=== PATIENT | female | born 1965 | race Caucasian/White ===

== ENCOUNTER 2025-03-21 08:54 | Outpatient (CLI) | payer OTHER, SELFPAY ==
--- OUTSIDE RECORDS SUMMARY | 2024-01-21 02:15 | XMS_ITS ---
Author Organization [facility] Address [address] [place] [address] Care Team Providers Care Armored Service Technician Name Role Phone Mati Guajardo MD Primary Care Provider [phone] RAJAN ELIAS, ABDI Maurer [phone] Encounters Encounter Location Date [facility] [address] [place] [address] 01/21/2024 ABDI HEBERT Plan Of Treatment No Information Progress Notes * BRUNO BEVERLYDOB:1965 (60 yo F)Acc No.[id number]:01/21/2024 Patient: BRUNO ANNA Provider: Jen Hebert MD :1965 A ge:58 Y S ex:Female Date:01/21/2024 Address:[address] [place] [address] [id number] Pcp:Mati Guajardo MD Subjective: * Chief Complaints: * * Medical History: Objective: * Vitals: Assessment: Plan: * Treatment: * Billing Information: * Visit Code: * Procedure Codes: * Electronic signature of TANK HEBERT MD, M.D. on 03/21/2025 at 10:30 AM EST Sign off status: Pending * Provider: Jen Hebert MD Date: 0 01/21/2024 Generated for Tamara gill/[place]/eTransmitting on: 05/21/2024 10:30 AM EST
--- OUTSIDE RECORDS SUMMARY | 2024-01-28 09:00 | XMS_ITS ---
Author Organization [facility] Address [address] [place] [address] Care Team Providers Care Hardware Assembler Name Role Phone Mati Guajardo MD Primary Care Provider REASON FOR VISIT AWV Encounters Encounter Location Date [facility] [address] [facility] [place] [address] 01/28/2024 Mati Guajardo Plan Of Treatment No Information Progress Notes * BRUNO BEVERLYDOB:1965 (60 yo F)Acc No.[id number]:01/28/2024 Progress Notes Patient: BRUNO ANNA Provider: Derrick Guajardo MD :1965 A ge:58 Y S ex:Female Date:01/28/2024 [address] [place] Subjective: * Chief Complaints: * 1 . AWV. * Medical History: Objective: * Vitals: Assessment: Plan: * Treatment: * Billing Information: * Visit Code: * Procedure Codes: * Electronic signature of Anton Guajardo MD, MD on 03/21/2025 at 10:30 AM EST Sign off status: Pending * Provider: Derrick Guajardo MD Date: 0 01/28/2024 Generated for Printi ng/Faxing/eTransmitting on: 1 05/21/2024 10:30 AM EST
--- OUTSIDE RECORDS SUMMARY | 2024-03-03 03:15 | XMS_ITS ---
Author Organization [facility] Address [address] [place] [address] Care Team Providers Care File Conversion Operator Name Role Phone Mati Guajardo MD Primary Care Provider Encounters Encounter Location Date Provider Diagnosis [facility] [address] [place] [address] 03/03/2024 Mati Guajardo Plan Of Treatment No Information Progress Notes * BRUNO BEVERLYDOB:1965 (60 yo F)Acc No.[id number]:03/03/2024 Patient: BRUNO ANNA Provider: Derrick Guajardo MD :1965 A ge:59 Y S ex:Female Date:03/03/2024 Address[address] [place], [place] [address] [address] [id number] Subjective: * Chief Complaints: * * Medical History: Objective: * Vitals: Assessment: Plan: * Treatment: * Billing Information: * Visit Code: * Procedure Codes: * Electronic signature of Anton Guajardo MD, MD on 03/21/2025 at 10:30 AM EST Sign off status: Pending * Provider: Derrick Guajardo MD Date: Generated for Printi ng/Faxing/eTransmitting on: 05/21/2024 10:30 AM EST
--- OUTSIDE RECORDS SUMMARY | 2024-03-20 07:30 | XMS_ITS ---
Author Organization [facility] Address [address] [place] [address] Care Team Providers Care Blister Rust Eradicator Name Role Phone Mati Guajardo MD Primary Care Provider [phone] Encounters Encounter Location Date Provider Diagnosis [facility] [address] [place] [address] 03/20/2024 Mati Guajardo Plan Of Treatment No Information Progress Notes * BRUNO BEVERLYDOB:1965 (60 yo F)Acc No.[id number]:03/20/2024 Progress Notes Patient: BRUNO ANNA Provider: Derrick Guajardo MD :1965 A ge:59 Y S ex:Female Date:03/20/2024 Address:[address] [place], [place] [address] [address] Subjective: * Chief Complaints: * * Medical History: Objective: * Vitals: Assessment: Plan: * Treatment: * Billing Information: * Visit Code: * Procedure Codes: * Electronic signature of Anton Guajardo MD, MD on 03/21/2025 at 10:30 AM EST Sign off status: Pending * Provider: Derrick Guajardo MD Date: 05/20/2023 Generated for Printi ng/Faxing/eTransmitting on: 05/21/2024 10:30 AM EST
--- NOTE | ~2025-03-21 | MR_ITS ---
EXAMINATION: MR MRCP wo/w con/w 3D wo ind DATE: 03/21/2025 11:31 INDICATION: Pancreatic disease Contrast: 14 mL MultiHance TECHNIQUE: Magnetic resonance imaging (MRI) of the abdomen was performed with intravenous contrast. Sequences included coronal T2-weighted FS FSE, coronal T2- weighted FSE, axial T1-weighted LAVA, coronal FS FIESTA, axial dual-echo T1- weighted SPGR, coronal lava-FLEX, sagittal T2-weighted FSE, axial T2-weighted FSE, and axial DWI. Thick-slab T2-weighted FSE images were obtained for magnetic resonance cholangiopancreatography (MRCP). Maximum intensity projection 3-D reconstructions of the volumetric data were created by the technologist. Postcontrast sequences included coronal LAVA-flex and time course of axial T1- weighted LAVA. COMPARISON: None. FINDINGS: 2.5 x 1.5 x 1.3 cm irregularly marginated nonenhancing fluid intensity cystic focus is present along the anterior margin of the pancreatic head and body region seen on image 26 series 4, image 7 series 3, and on the MRCP image. The remainder the pancreas appears normal. The pancreatic duct appears normal. 1.1 cm septated slightly complex cyst right lobe of the liver image 19 series 4. Gallbladder appears normal and no biliary ductal dilatation present. No choledocholithiasis seen. Common bile duct measures maximum 5 mm in diameter. Pancreatic duct appears normal. Adrenal glands kidneys and stomach appear normal. The aorta normal in size. Bones appear intact. Partially visualized bilateral breast implants with visualized portions appear intact. IMPRESSION: 1. 2.5 x 1.5 x 1.3 cm cystic lesion along the anterior margin of the pancreatic head/uncinate region with no suspicious enhancing features favoring benignity. IPMN or intraductal papillary mucinous neoplasm could have a similar appearance. Follow-up surveillance MRI in 6 months or sooner if clinically appropriate recommended. 2. Normal MRCP. Reviewed, dictated and finalized at location A. [facility] IMPRESSION: 1. 2.5 x 1.5 x 1.3 cm cystic lesion along the anterior margin of the pancreatic head/uncinate region with no suspicious enhancing features favoring benignity. IPMN or intraductal papillary mucinous neoplasm could have a similar appearanc e. Follow-up surveillance MRI in 6 months or sooner if clinically appropriate r ecommended. 2. Normal MRCP.
--- OUTSIDE RECORDS SUMMARY | 2025-03-21 09:30 | XMS_ITS ---
Author Organization Unknown ENCOUNTERS Encounter Performer Location Date Diagnosis Diagnosis Status Outpatient Rosalie Brooke [place] [address] [facility] [place] [id number] *Note: Encounters from your own facility or health system may be excluded. Allergies, Adverse Reactions, Alerts Allergen Type Severity Identification Date Medications Name Date Quantity Days Supplied GPI Number
--- OUTSIDE RECORDS SUMMARY | 2025-03-21 09:31 | XMS_ITS | Patient Health Record ---
Author Organization [facility] Address [address] [place] [address] Care Team Providers Care Perfume Maker Name Role Phone Casandra ELIAS Mati Primary Care Provider Allergies No Known Allergies Results Component Value Reference Range Notes CA [id number] Reviewed date:03/25/2024 01:36:18 PM Interpretation: Performing Lab:[facility], [facility], Phone - [phone], Director - Deana Notes/Report: CA [id number] 0-35 U/mL [facility] Electrochemiluminescence Immunoassay (ECLIA) . Values obtained with different assay methods or kits cannot be used interchangeably. Results cannot be interpreted as absolute evidence of the presence or absence of malignant disease. Reason For Referral No Information Social History Tobacco Use: Social History Observation Description Date Details (start date - stop date) Never Smoker NA - NA Household Question Answer Notes Marital status: Tobacco Use/Smoking Question Answer Notes Tobacco use: nonsmoker Alcohol Screen (Audit-C) Question Answer Notes Did you have a drink containing alcohol in the p ast year? No Points 0 Interpretation Negative Problems Problem Type SNOMED Code ICD Code Onset Dates Problem Status W/U Status Risk Notes Problem Insomnia (164949813) Insomnia, unspecified (G47.00) Active confirmed Problem Personal history of primary malignant neoplasm of breast (171523323) History of breast cancer (Z85.3) Active confirmed Problem Mixed hyperlipidemia (358227889) Hyperlipemia, mixed (E78.2) Active confirmed Problem Pancreatic cyst (66540934) Pancreatic cyst (K86.2) Active confirmed Vital Signs Heart Rate 69 /min 03/24/2024 Temperature 97.2 degrees Fahrenheit 03/24/2024 Respiratory Rate 12 /min 03/24/2024 Oximetry 100 % 03/24/2024 Blood pressure diastolic 74 mm Hg 03/24/2024 Height 5 ft 6 in in 03/24/2024 Blood pressure systolic 112 mm Hg 03/24/2024 Weight 171 lbs 03/24/2024 BMI 27.6 kg/m2 03/24/2024 Encounters Encounter Location Date Provider Diagnosis [facility] [address] [facility] [place] [address] 03/24/2024 Mati Andreu Encounter for general adult medical examination without abnormal findings Z00.00 ; Hyperlipemia, mixed E78.2 ; Insomnia, unspecified G47.00 ; Pancreatic cyst K86.2 ; History of breast cancer Z85.3 and Adult BMI 27.0-27.9 kg/sq m Z68.27 Assessments Encounter Date Diagnosis (ICD Code) Assessment Notes Treatment Notes Treatment Clinical Notes Section Notes 03/24/2024 Encounter for general adult medical examination without abnormal findings (ICD-10 - Z00.00) -We discussed preventive care as applicable to individual health situation and age, including indicated cancer screenings and vaccinations -Advised on regular exercise and daily physical activities of at least 30 min per day 5x/week as tolerated -Annual Dental and Ophthalmology visit advised -Counseled on broad spectrum sunscreen and to avoid prolonged sun exposure -Counseled on proper hydration and well-balanced diet of lean proteins, whole grains, and fresh fruits & vegetables. 03/24/2024 Hyperlipemia, mixed (ICD-10 - E78.2) The patient has hyperlipidemia with a mixed elevated cholesterol profile. Counseled on the importance of adhereing to a well balanced diet high in fresh foods rich in vegetables/fruits and fiber and a regular exercise protocol. 03/24/2024 Insomnia, unspecified (ICD-10 - G47.00) Recommend pt try natural sleep aids such as L-theanine or MELATONIN in low doses of 3mg - 5mg taken 2-3 hours before bed. Counseled patient on sleep hygiene as well as getting daily exercise, preferably in the morning. Goal is to go to bed and wake up at the same time each day, avoid caffeine in the afternoon and evening. Avoid late night eating, and engage in relaxing activities. Recommend dimming lights and reducing computer time or TV-watching before bed . Relaxation techniques such as meditation, guided imagery, and breathing exercises help reduce sympathetic stimulation. 03/24/2024 Pancreatic cyst (ICD-10 - K86.2) seen on MRI, will send for repeat 03/24/2024 History of breast cancer (ICD-10 - Z85.3) being followed by distresser 03/24/2024 Adult BMI 27.0-27.9 kg/sq m (ICD-10 - Z68.27) Plan Of Treatment Pending Test Test Name Order Date MRCP 03/24/2024 MRI : Abdomen with and without Contrast 03/24/2024 Insurance Providers Payer Name Payer Address Payer Phone Subscriber Number Group Number Insured Name Patient Relationship to Insured Coverage Start Date Coverage End Date [facility] [employer] [address] [place] [phone] [id number] BRUNO BEVERLY Self - patient is the insured Medical (General) History Medical History History ICD Code Health Assessment: Last eye exam- 2022 Health Assessment: Last EKG - 2022 Health Assessment: B/L Breast MRI and u/ s- 10/21/2022 (every 6 months) Health Assessment: Endoscopy /Colonoscopy- 2020, advised to repeat in 10 years Health Assessment: Pap smear- 2021 - Health Assessment: Bone density- 2021 Health Assessment: Covid-19 vaccine - pf izer - 3 doses Health Assessment: Flu vaccine - 2021 Health Assessment: Pneumonia vaccine - n ever Pancreatic Cyst 1.2 cm, 04/2022, Ca-19-9 stable, Surgical History Surgery Date(Month/Year) total hysterectomy 2014 Left Lumpectomy, radiation t x, tamoxifen x 5 years(breast cancer - [facility]) estrogen positive 2013, Right breast Triple negative, lumpectomy , taxol 2018 B/L Mastectomy with reconstruction 01/28 20
[2025-03-21 09:42] LABS: Hematocrit 39.3 % (37.0-47.0); Hemoglobin 13.2 g/dL (12.0-15.0); Immature Granulocyte Percent A 0.2 % (0-0.5); Lymphocytes Absolute Auto 1.49 K/mm3 (0.9-3.2); Mean Corpuscular HGB Conc 33.6 g/dl (32-36); Mean Corpuscular Hemoglobin 29.9 pg (26-34); Mean Corpuscular Volume 89.1 fl (80-100); Nucleated Red Blood Cells Absolute Auto 0.000 K/mm3 (0.0-0.012); Nucleated Red Blood Cells Perc 0.0 % (0.0-0.2); Platelet Count Result 213 k/mm3 (150-375); Red Blood Count 4.41 M/mm3 (4.2-5.4); White Blood Count 4.6 K/mm3 (4.5-10.0)
[2025-03-21 10:06] LABS: Alanine Aminotransferase 22 U/L (6-35); Albumin Level 4.2 g/dL (3.5-5.1); Alkaline Phosphatase 62 U/L (38-126); Anion Gap 8 mmol/L (4-12); Aspartate Amino Transferase 32 U/L (14-36); Bilirubin,Total 0.6 mg/dL (0.2-1.3); Blood Urea Nitrogen 25 mg/dL (7-17); Calcium 9.2 mg/dL (8.4-10.2); Carbon Dioxide 27 mmol/L (22-30); Chloride 105 mmol/L (98-107); Cholesterol 224 mg/dL (0-200); Estimated Glomerular Filt Rate > 60; Glucose 96 mg/dL (65-110); HDL Direct 74 mg/dL; Potassium 4.0 mmol/L (3.4-5.0); Sodium 140 mmol/L (137-145); Total Protein 7.4 g/dL (6.3-8.2); Triglycerides 86 mg/dL (<150)
[2025-03-21 10:41] LABS: Thyroid Stimulating Hormone 2.800 uIU/mL (0.465-4.680)
== END 2025-03-21 08:55 | disposition home or self-care (01) ==
LOC: ANHIMG 08:56
PROVIDERS: PCP Family Medicine; Visit Provider Family Medicine
DX: Z00.00 Encounter for general adult medical examination without abnormal findings (principal); K86.9 Disease of pancreas, unspecified; Z85.3 Personal history of malignant neoplasm of breast
CPT/HCPCS: 36415; 74183; 76376; 80053; 80061; 84443; 85025; A9577